=== PATIENT | male | born 1955 | race Caucasian/White ===

== ENCOUNTER 2025-03-05 23:49 | Inpatient (IN) | payer MEDICARE, OTHER ==
[~2025-03-05] VITALS: Ht 170.2 cm; Wt 75.7 kg
[2025-03-06 00:43] LABS: PLATELET COUNT (AUTO) 211 K/uL (150-450); RED BLOOD CELL COUNT(AUTO) 5.35 MIL/uL (4.5-6.0); RED CELL DISTRIBUTION WIDTH 13.9 % (11.5-15.0); WHITE BLOOD COUNT (AUTO) 7.0 K/uL (4.3-11.0)
[2025-03-06 00:52] LABS: CALCIUM, SERUM 8.6 mg/dL (8.5-10.1); CREATININE 0.9 mg/dL (0.6-1.3); SODIUM SERUM 141.0 mmol/L (136-145); UREA NITROGEN, BLOOD 13.0 mg/dL (7-18)
[2025-03-06 01:04] LABS: ASPARTATE AMINOTRANSFERASE 12.0 U/L (15-37); NT-PRO BNP 107.0 pg/mL (0-125); TOTAL PROTEIN, SERUM 7.4 g/dL (6.4-8.2)
[2025-03-06] MEDS: ASPIRIN EC 325 MG TABLET.DR PO ONE (01:11)
[2025-03-06] MEDS ORDERED: ASPIRIN 325 MG TABLET ONE (01:11)
[2025-03-06] MEDS ORDERED: MAG HYDROX/AL HYDROX/SIMETH 30 ML UDC PO PRN (02:30)
[2025-03-06] MEDS ORDERED: ACETAMINOPHEN 325 MG TABLET PO PRN (02:30)
[2025-03-06] MEDS ORDERED: ONDANSETRON HCL/PF 4 MG/2 ML VIAL IVP PRN (02:30)
[2025-03-06] MEDS: ENOXAPARIN SODIUM 40 MG/0.4 ML DISP.SYRIN SQ SCH (03:29)
[2025-03-06 04:00] VITALS: BP 135/95; TEMP 97.9; O2SAT 98
[2025-03-06 08:00] VITALS: BP_SYST 132; BP_SYST 98; BP_DIAS 68; BP_DIAS 94; TEMP 97.7; TEMP 98.4; O2SAT 100
[2025-03-06 08:46] LABS: LDL 125 mg/dL (0-99)
[2025-03-06] MEDS: ASPIRIN 81 MG TAB.CHEW PO SCH (09:01)
[2025-03-06] MEDS: METOPROLOL TARTRATE 50 MG TABLET PO SCH (09:02)
[2025-03-06] MEDS: ATORVASTATIN 10 MG TABLET PO SCH (09:03)
[2025-03-06] MEDS ORDERED: IV NS 0.9% 250 ML IV ONE (10:14)
[2025-03-06] MEDS ORDERED: IOHEXOL-350 100 ML VIAL IV ONE (10:14)
[2025-03-06] MEDS: METOPROLOL TARTRATE INJ 5 MG/5 ML AMPUL IVP PRN (10:30)
[2025-03-06] MEDS ORDERED: NITROGLYCERIN 0.4 MG/TAB BOTTLE ONE (10:32)
[2025-03-06] MEDS ORDERED: METOPROLOL TARTRATE INJ 5 MG/5 ML AMPUL ONE (10:32)
[2025-03-06] MEDS: NITROGLYCERIN 0.4 MG/TAB BOTTLE SL ONE (10:36)
[2025-03-06 12:00] VITALS: BP 131/95; TEMP 97.3; O2SAT 98
[2025-03-06] MEDS ORDERED: ATOR10TA PO (14:28)
[2025-03-06] MEDS ORDERED: ASPI-1169 PO (14:28)
[2025-03-06] MEDS ORDERED: METO50TA16 PO (14:28)
[2025-03-06 16:00] VITALS: BP 155/98; TEMP 97.7; O2SAT 99
[2025-03-06 20:00] VITALS: BP 132/92; TEMP 97.7; O2SAT 99
== END 2025-03-06 20:17 | disposition home or self-care (01) | DRG 303 ==
LOC: ER 03-06 00:02 → TELE1 03-06 00:51 → MEDSG1 03-06 18:23
PROVIDERS: ADMIT Student in an Organized Health Care Education/Training Program; ATTEND Student in an Organized Health Care Education/Training Program
DX: I25.10 Atherosclerotic heart disease of native coronary artery without angina pectoris (principal); E78.5 Hyperlipidemia, unspecified; I10 Essential (primary) hypertension; Z95.5 Presence of coronary angioplasty implant and graft; R94.31 Abnormal electrocardiogram [ECG] [EKG]; E80.6 Other disorders of bilirubin metabolism; Z90.49 Acquired absence of other specified parts of digestive tract; Z79.82 Long term (current) use of aspirin
CPT/HCPCS: 36415; 71045-TC; 75574; 80053-TC; 80061-TC; 83735-TC; 83880; 84484-TC; 85025-TC; 93307-TC; G0378; J1650; J3490; J7050; Q9967

== ENCOUNTER 2025-03-26 12:45 | Emergency (ER) | payer MEDICARE, OTHER ==
[~2025-03-26] VITALS: Ht 170.2 cm; Wt 77.1 kg
[~2025-03-26 12:45] MED LIST: ASPI-1169 PO; ATOR10TA PO; METO50TA16 PO
[2025-03-26] MEDS ORDERED: IBUP-1955 PO (15:44)
[2025-03-26] MEDS ORDERED: IBUPROFEN 600 MG TABLET ONE (15:46)
[2025-03-26 15:53] VITALS: BP 134/86; TEMP 98.4; O2SAT 99
[2025-03-26] MEDS ORDERED: IBUPROFEN 600 MG TABLET PO ONE (16:00)
== END 2025-03-26 15:54 | disposition home or self-care (01) ==
LOC: ER 12:50
DX: H93.19 Tinnitus, unspecified ear (principal); R51.9 Headache, unspecified; I11.9 Hypertensive heart disease without heart failure; I25.10 Atherosclerotic heart disease of native coronary artery without angina pectoris; Z79.82 Long term (current) use of aspirin; Z79.899 Other long term (current) drug therapy; Z95.5 Presence of coronary angioplasty implant and graft
CPT/HCPCS: 70450-TC